=== PATIENT | female | born 1950 | race Caucasian/White ===

== ENCOUNTER 2019-01-25 23:22 | Inpatient (IN) | payer MEDICARE, OTHER ==
[~2019-01-25] VITALS: Ht 165.1 cm; Wt 78.5 kg
[~2019-01-25 23:22] MED LIST: AMLO5TAB9 PO; ASPI-1169 PO; BISA5TAB10 PO; D-ME118S12 PO; DIVA500T2 PO; DOCU-106 PO; FLUT1DIS IH; FURO20TA4 PO; INSU3INS6 SUBCUT; METF-442 PO; PANT40SU PO; PANT40TA4 PO
--- NOTE | 2019-01-25 23:30 | NUR ---
PT TO ER ED 11. AAOX3. NAD. BREATHING EVEN AND UNLABORED. C/O ACTING UNUSUAL/ALTERED, HEARING VOICES, DEPRESSION. CAREGIVER AT PLACE WHERE SHE IS STYING IS CONCERNED THAT SHE MIGHT HAVE UTI. UPON ASSEESSMENT, PT IS AGITATED AND REFUSING TREATMENT. AWAITING MD FOR EVAL.
--- NOTE | 2019-01-25 23:50 | NUR ---
PT REFUSED LAB DRAW. MADE AWARE.
--- NOTE | 2019-01-26 00:05 | NUR ---
AT BEDSIDE. PT REFUSING TREATMENT.
--- NOTE | 2019-01-26 00:23 | NUR ---
SISTER/POA BAUDILIO STEPHEN CALLED AND LEFT A MESSAGE.
--- NOTE | 2019-01-26 00:27 | NUR ---
CALLED PATIENTS PCP DR SADIA MOONEY, UNABLE TO REACH HIM PHONE NUMBER IS DICONNECTED.
[2019-01-26 00:46] LABS: BASOPHILS # (AUTO) 0.1 /CMM (0.0-0.2); BASOPHILS % (AUTO) 0.6 % (0.0-2.0); EOSINOPHILS % (AUTO) 1.7 % (0.0-6.0); HEMATOCRIT 40 % (33-45); HEMOGLOBIN 13.7 g/dL (11.5-14.8); LYMPHOCYTES # (AUTO) 4.1 /CMM (0.8-4.8); LYMPHOCYTES % (AUTO) 47.3 % (20.0-44.0); MEAN CORPUSCULAR HGB CONC 34 g/dl (31.0-36.0); MEAN CORPUSCULAR VOLUME 97 fL (82-100); MONOCYTES # (AUTO) 0.7 /CMM (0.1-1.30); MONOCYTES % (AUTO) 8.4 % (2.0-12.0); NEUTROPHILS # (AUTO) 3.6 /CMM (1.8-8.9); PLATELET COUNT (AUTO) 151 /CMM (150-450); RED BLOOD CELL COUNT(AUTO) 4.12 MIL/uL (4.0-5.2); WHITE BLOOD COUNT (AUTO) 8.7 K/uL (4.3-11.0)
[2019-01-26 01:01] LABS: CALCIUM, SERUM 9.8 mg/dL (8.5-10.1); CARBON DIOXIDE 32 mmol/L (21-32); CHLORIDE 104 mmol/L (98-107); CREATININE 0.8 mg/dL (0.6-1.3); GLUCOSE 139 mg/dL (74-106); SODIUM SERUM 140 mmol/L (136-145); UREA NITROGEN, BLOOD 17 mg/dL (7-18)
[2019-01-26 01:06] LABS: ALANINE AMINOTRANSFERASE 18 U/L (12-78); ALBUMIN 3.5 g/dL (3.4-5.0); ALKALINE PHOSPHATASE 77 U/L (46-116); ASPARTATE AMINOTRANSFERASE 11 U/L (15-37); BILIRUBIN,TOTAL 0.1 mg/dL (0.2-1.0); SALICYLATE 5.1 mg/dL (2.8-20.0); TOTAL PROTEIN, SERUM 6.7 g/dL (6.4-8.2)
[2019-01-26 01:07] LABS: ACETAMINOPHEN 0 ug/ml (10-30); ALCOHOL, BLOOD < 3 mg/dL (0-0)
[2019-01-26 01:13] LABS: THYROID STIMULATING HORMONE 2.218 uIU/mL (0.358-3.74)
--- NOTE | 2019-01-26 01:14 | NUR ---
URINE COLLECTED AND SENT TO LAB
[2019-01-26 01:21] LABS: APPEARANCE,URINE Clear (CLEAR); BILIRUBIN,URINE Negative (NEGATIVE); BLOOD, URINE Negative Ery/uL (NEGATIVE); COLOR,URINE Yellow (YELLOW); KETONES,URINE Trace (NEGATIVE); LEUKOCYTE ESTERASE ,URINE Small (NEGATIVE); NITRITE, URINE Negative (NEGATIVE); PROTEIN,URINE Negative (NEGATIVE); UGLUCOSE Negative (NEGATIVE)
[2019-01-26 01:54] LABS: BACTERIA,URINE None seen /HPF (None Seen); RBC,URINE 0-2 /HPF (0-2); SQUAMOUS EPITHELIAL CELL,UR Few /HPF (None Seen)
--- NOTE | 2019-01-26 01:55 | NUR ---
PT REFUSED TO HAVE HER VS TAKEN. REMOVING BF CUFF AND O2 SAT
--- NOTE | 2019-01-26 02:14 | NUR ---
REPORT GIVEN TO MCKAYLA ANN. PT GOING TO 220-A
--- NOTE | 2019-01-26 03:10 | NUR ---
GPS ADMISSION NOTE, [facility] . PATIENT ARRIVED ON THIS UNIT AT 0310 VIA WHEELCHAIR WITH 1 TAFFY PULLER ESCORT. PATIENT ADMITTED ON A 5150 HOLD FOR GD AND DTS. PER HOLD PATIENT IS ALERT AND ORIENTED X 1 -2, CONFUSED, RAMBLING AT TIMES, AND ANXIOUS. PATIENT IS HAVING DELUSIONAL THOUGHTS THAT HER MALE ROOMMATE WAS SETTING HER UP BY PLANTING FECES IN ROOM AND NOT ALLOWING HER TO SMOKE AT HER FACILITY. PATIENT UNABLE TO ACCOUNT FOR HER OWN ACTIVITIES DURING THE DAY. THE 5150 WAS REVIEWED AND THE DOCUMENTATION IN THE 5150 HOLD APPEARS TO REFLECT THE PRESENTATION OF THE PATIENT. UPON FACE TO FACE ASSESSMENT PATIENT IS CURRENTLY LYING IN BED AWAKE, HAS NO S/S OR COMPLAINTS OF PAIN. PATIENT IS DISPLAYING NO S/S OF APPARENT DISTRESS. PATIENT BREATHING IS UNLABORED WITH EQUAL RISE AND FALL OF THE CHEST. PATIENT IS ALERT AND ORIENTATED X 1 -2 ON ROOM AIR. PATIENT ASSISTED WITH TURING AND REPOSITIONING Q2HR AND PRN FOR COMFORT AND CIRCULATION. PATIENT HAS NO NEEDS AT THIS TIME. PATIENT IS NOTED TO BEING ANXIOUS, DISHEVELED, DISORGANIZED, CONFUSED, COOPERATIVE, AND NEEDS REDIRECTION. PATIENT DENIES SUICIDE IDEATIONS AND HOMICIDAL IDEATIONS AT THIS TIME. PATIENT IS UNDER THE PSYCHIATRIC CARE OF DR. DOYLE AND THE MEDICAL CARE OF DR QUAN. PATIENT BELONGINGS WERE INVENTORIED AND CHECKED FOR CONTRABAND. ALL CONTRABAND REMOVED AND STORED IN PATIENT HALLWAY LOCKER. PATIENT ADVANCED DIRECTIVES PREFERENCE, IMMUNIZATIONS QUESTIONER, NECESSARY PAPERWORK, AND SKIN ASSESSMENT COMPLETED. PATIENT ORIENTATED TO ROOM, FLOOR, AND STAFF WITH ALL QUESTIONS ANSWERED. PATIENT EDUCATED ON THE USE OF THE CALL [employer]. PATIENT BED SIDE RAILS ARE UP X 2 FOR SAFETY. PATIENT BED IS LOCKED, LOW AND I WILL CONTINUE TO MONITOR THIS PATIENT Q 15 MIN WITH THE HELP OF STAFF TO MAINTAIN SAFETY.
[2019-01-26] MEDS ORDERED: RISP1TAB27 PO (04:30)
[2019-01-26] MEDS ORDERED: clonazePAM 0.5 MG TABLET PO PRN (04:30)
[2019-01-26] MEDS ORDERED: MAGNESIUM HYDROXIDE 30 ML UDC PO PRN (04:30)
[2019-01-26] MEDS ORDERED: MAG HYDROX/AL HYDROX/SIMETH 30 ML UDC PO PRN (04:30)
[2019-01-26] MEDS ORDERED: ACETAMINOPHEN 325 MG TABLET PO PRN (04:30)
[2019-01-26] MEDS ORDERED: INSU100I26 SQ (04:32)
[2019-01-26] MEDS ORDERED: PALI234D IM ×2 (04:36→08:12)
[2019-01-26] MEDS ORDERED: ATOR20TA PO (04:37)
[2019-01-26] MEDS ORDERED: HYDR-4384 PO (04:40)
[2019-01-26] MEDS ORDERED: ALBU18HF2 INH (04:41)
[2019-01-26] MEDS ORDERED: DEXTROSE 50%-WATER 50 ML DISP.SYRIN IV PRN (05:30)
[2019-01-26] MEDS: BLOOD SUGAR DIAGNOSTIC 1 EACH STRIP IN SCH ×4 (07:30→21:08)
[2019-01-26 08:00] VITALS: BP 130/63
[2019-01-26] MEDS ORDERED: INSU100V11 SQ (08:12)
[2019-01-26] MEDS ORDERED: FLUT1DIS3 IH (08:12)
[2019-01-26] MEDS ORDERED: FLUT16SP16 BNOSTRILS (08:12)
[2019-01-26] MEDS ORDERED: POLY15DR40 EACHEYE (08:12)
[2019-01-26] MEDS ORDERED: POLY17PO4 PO (08:12)
[2019-01-26] MEDS ORDERED: ASPI-1152 PO (08:12)
[2019-01-26] MEDS: NICOTINE PATCH (21MG) 21 MG PATCH.TD24 TD SCH ×2 (09:00→10:47)
--- NOTE | 2019-01-26 11:25 | NUR ---
REFUSED MRSA SMEAR.
[2019-01-26] MEDS: risperiDONE 1 MG TABLET PO SCH ×3 (12:30→17:00)
--- NOTE | 2019-01-26 12:34 | NUR ---
Dr. Masters gave an order to change service to Dr. Mckeon.
--- NOTE | 2019-01-26 12:35 | NUR ---
Dr. Mckeon made aware that pt. is under his service.
[2019-01-26] MEDS: INSULIN REGULAR, HUMAN 100 UNIT/ML 3 ML VIAL SQ PRN ×3 (12:55→22:29)
[2019-01-26] MEDS: DIVALPROEX SODIUM 500 MG TABLET.DR PO SCH ×2 (13:05→18:21)
[2019-01-26] MEDS: POLYVINYL ALCOHOL 15 ML BOTTLE OP SCH ×2 (13:08→18:16)
--- NOTE | 2019-01-26 13:17 | NUR ---
dr pineda in risperdal ordered.pt. refused -states allergic.foam charger informed.dr. shama bryan's exchange called to alert him he has this new pt.left message.
[2019-01-26] MEDS ORDERED: ALBUTEROL FS 2.5 MG/3 ML VIAL.NEB NEB PRN (13:30)
--- NOTE | 2019-01-26 14:30 | NUR ---
dr. pineda in-new orders for psych.pt.spoke with
[2019-01-26 16:00] VITALS: BP 113/65
[2019-01-26] MEDS ORDERED: risperiDONE 1 MG TABLET PO SCH (17:00)
[2019-01-26] MEDS: FLUTICASONE PROPIONATE 16 GM BOTTLE NS SCH (18:16)
[2019-01-26] MEDS: METFORMIN 500 MG TABLET PO SCH (18:21)
[2019-01-26] MEDS: TEMAZEPAM 7.5 MG CAPSULE PO PRN (23:22)
[2019-01-27] MEDS: BLOOD SUGAR DIAGNOSTIC 1 EACH STRIP IN SCH ×4 (07:30→21:49)
[2019-01-27 08:00] VITALS: BP 113/56
[2019-01-27] MEDS: NICOTINE PATCH (21MG) 21 MG PATCH.TD24 TD SCH (09:14)
[2019-01-27] MEDS: risperiDONE 1 MG TABLET PO SCH ×3 (09:14→21:48)
[2019-01-27] MEDS: DIVALPROEX SODIUM 500 MG TABLET.DR PO SCH ×3 (09:14→17:00)
[2019-01-27] MEDS: POLYETHYLENE GLYCOL 3350 17 GM POWD.PACK PO SCH (09:15)
[2019-01-27] MEDS: METFORMIN 500 MG TABLET PO SCH ×2 (09:15→18:29)
[2019-01-27] MEDS: PANTOPRAZOLE 40 MG TABLET.DR PO SCH (09:15)
[2019-01-27] MEDS: ASPIRIN EC 81 MG TABLET.DR PO SCH (09:15)
[2019-01-27] MEDS: DOCUSATE SODIUM 100 MG CAPSULE PO SCH (09:15)
[2019-01-27] MEDS: INSULIN GLARGINE, 100 UNIT/ML CARTRIDGE SQ SCH (09:16)
[2019-01-27] MEDS: INSULIN REGULAR, HUMAN 100 UNIT/ML 3 ML VIAL SQ PRN ×4 (09:18→21:52)
[2019-01-27] MEDS: POLYVINYL ALCOHOL 15 ML BOTTLE OP SCH ×3 (09:22→17:00)
[2019-01-27] MEDS: FLUTICASONE/VILANTEROL 1 EACH BLST.W.DEV IH SCH (09:24)
[2019-01-27] MEDS: FLUTICASONE PROPIONATE 16 GM BOTTLE NS SCH ×2 (09:24→17:00)
[2019-01-27 16:00] VITALS: BP 100/63
[2019-01-27 19:47] VITALS: BP 129/79
[2019-01-27] MEDS: ATORVASTATIN 10 MG TABLET PO SCH ×2 (21:49→21:56)
--- NOTE | 2019-01-27 22:00 | NUR ---
GPS RN NOTES: PATIENT REFUSED HER MEDICATIONS-RISPERDAL AND LIPITOR. EXPLAINED TO PATIENT THE NEED FOR HER TO TAKE THESE MEDICAITONS. PATIENT REPLIED "DR. CARRIZALES TOLD ME NOT TO TAKE ANYTHING WITHOUT HIS PERMISSION"
[2019-01-27] MEDS: TEMAZEPAM 7.5 MG CAPSULE PO PRN (23:17)
[2019-01-28 07:14] LABS: CHOLESTEROL 132 mg/dL (<200); HDL CHOLESTEROL 39 mg/dL (40-60); LDL 80 mg/dL (0-99); TRIGLYCERIDES 143 mg/dL (30-150)
[2019-01-28 07:15] LABS: ALBUMIN 3.2 g/dL (3.4-5.0); BILIRUBIN,TOTAL 0.4 mg/dL (0.2-1.0); CALCIUM, SERUM 9.6 mg/dL (8.5-10.1); CREATININE 0.7 mg/dL (0.6-1.3); POTASSIUM 4.3 mmol/L (3.5-5.1); TOTAL PROTEIN, SERUM 6.3 g/dL (6.4-8.2)
[2019-01-28] MEDS: BLOOD SUGAR DIAGNOSTIC 1 EACH STRIP IN SCH ×4 (07:57→21:23)
[2019-01-28 08:00] VITALS: BP 155/63
[2019-01-28] MEDS: POLYVINYL ALCOHOL 15 ML BOTTLE OP SCH ×3 (08:52→17:08)
[2019-01-28] MEDS: FLUTICASONE PROPIONATE 16 GM BOTTLE NS SCH ×2 (08:53→17:08)
[2019-01-28] MEDS: DOCUSATE SODIUM 100 MG CAPSULE PO SCH (08:53)
[2019-01-28] MEDS: risperiDONE 1 MG TABLET PO SCH ×2 (08:53→21:14)
[2019-01-28] MEDS: ASPIRIN EC 81 MG TABLET.DR PO SCH (08:53)
[2019-01-28] MEDS: DIVALPROEX SODIUM 500 MG TABLET.DR PO SCH ×3 (08:53→16:52)
[2019-01-28] MEDS: PANTOPRAZOLE 40 MG TABLET.DR PO SCH (08:53)
[2019-01-28] MEDS: NICOTINE PATCH (21MG) 21 MG PATCH.TD24 TD SCH (08:54)
[2019-01-28] MEDS: FLUTICASONE/VILANTEROL 1 EACH BLST.W.DEV IH SCH (08:54)
[2019-01-28] MEDS: POLYETHYLENE GLYCOL 3350 17 GM POWD.PACK PO SCH (08:54)
[2019-01-28] MEDS: INSULIN GLARGINE, 100 UNIT/ML CARTRIDGE SQ SCH (09:12)
[2019-01-28] MEDS: INSULIN REGULAR, HUMAN 100 UNIT/ML 3 ML VIAL SQ PRN ×4 (09:13→21:23)
--- NOTE | 2019-01-28 10:23 | NUR ---
rn notes informed pharmacy of missing medications. will continue to follow up.
--- NOTE | 2019-01-28 11:53 | NUR ---
rn notes informed pharmacy of missing medications. will continue to follow up.
[2019-01-28] MEDS: METFORMIN 500 MG TABLET PO SCH ×2 (12:17→16:52)
[2019-01-28 17:20] VITALS: BP 139/74
[2019-01-28 20:16] VITALS: BP 110/57
[2019-01-28] MEDS: ATORVASTATIN 10 MG TABLET PO SCH (21:14)
[2019-01-28] MEDS: TEMAZEPAM 7.5 MG CAPSULE PO PRN (22:24)
[2019-01-29 08:00] VITALS: BP 137/68
[2019-01-29] MEDS: BLOOD SUGAR DIAGNOSTIC 1 EACH STRIP IN SCH ×4 (08:09→21:32)
[2019-01-29] MEDS: INSULIN GLARGINE, 100 UNIT/ML CARTRIDGE SQ SCH (08:13)
[2019-01-29] MEDS: POLYVINYL ALCOHOL 15 ML BOTTLE OP SCH ×3 (08:25→16:28)
[2019-01-29] MEDS: FLUTICASONE PROPIONATE 16 GM BOTTLE NS SCH ×2 (08:26→16:26)
[2019-01-29] MEDS: FLUTICASONE/VILANTEROL 1 EACH BLST.W.DEV IH SCH (08:27)
[2019-01-29] MEDS: METFORMIN 500 MG TABLET PO SCH ×2 (08:29→16:32)
[2019-01-29] MEDS: PANTOPRAZOLE 40 MG TABLET.DR PO SCH (08:30)
[2019-01-29] MEDS: DOCUSATE SODIUM 100 MG CAPSULE PO SCH (08:30)
[2019-01-29] MEDS: risperiDONE 1 MG TABLET PO SCH ×2 (08:30→21:07)
[2019-01-29] MEDS: DIVALPROEX SODIUM 500 MG TABLET.DR PO SCH ×3 (08:31→16:31)
[2019-01-29] MEDS: POLYETHYLENE GLYCOL 3350 17 GM POWD.PACK PO SCH (08:32)
[2019-01-29] MEDS: ASPIRIN EC 81 MG TABLET.DR PO SCH (08:35)
[2019-01-29] MEDS: NICOTINE PATCH (21MG) 21 MG PATCH.TD24 TD SCH (08:37)
[2019-01-29] MEDS: INSULIN REGULAR, HUMAN 100 UNIT/ML 3 ML VIAL SQ PRN ×5 (09:59→21:37)
--- NOTE | 2019-01-29 09:59 | NUR ---
RN NOTE: PATIENT HAD A BS OF 271MG/DL THIS MORNING AND REFUSED HER 6 UNITS OF REGULAR INSULIN. PATIENT WAS GETTING ANGRY, STARTED NAME CALLING AND REFUSED HER SHOT.
--- NOTE | 2019-01-29 13:11 | NUR ---
SW contacted [facility] Address: [address] [place] [address] and spoke with Feliz, test administrator who stated pt is able to return once stable.
--- NOTE | 2019-01-29 13:13 | NUR ---
SW attempted to contact pts Sister Jyoti [phone] and left a voicemail for callback.
--- NOTE | 2019-01-29 13:28 | NUR ---
RN NOTE: PATIENT'S BS PRIOR TO LUNCH WAS 229MG/DL. PATIENT REFUSED COVERAGE.
--- NOTE | 2019-01-29 13:58 | NUR ---
GPS/RN-NOTES PATIENT CAME THE NURSE STATION AND REQUESTING HER INSULIN COVERAGE. PATIENT BS WAS 229MG/DL, 4 UNITS OF R INSULIN GIVEN ORDERED.
--- NOTE | 2019-01-29 14:17 | NUR ---
INITIAL DISCHARGE PLAN: Pt will return to [facility] Address: [address] [place] [address] . MARÍA ELENA spoke with Feliz, red hat open stack administrator who stated pt is able to return once stable.MARÍA ELENA will help form a safe and proper discharge plan in collaboration with .
[2019-01-29 16:00] VITALS: BP 142/53
[2019-01-29 19:56] VITALS: BP 116/49
[2019-01-29] MEDS: ATORVASTATIN 10 MG TABLET PO SCH (21:08)
[2019-01-29] MEDS: TEMAZEPAM 7.5 MG CAPSULE PO PRN (21:53)
--- NOTE | 2019-01-29 21:53 | NUR ---
refining engineer notes' restoril po given per pt requested. blood sugar 179, 3 units of insulin alek SQ as ordered. snacks also served.
--- NOTE | 2019-01-30 | NUR ---
COMMUNITY ORGANIZATION WORKER NOTES PT SLEEPING COMFORTABLY IN BED WITHOUT ANY DISTRESS NOTED. KEPT HER WARM AND COMFORTABLE AT ALL TIMES . WILL CONTINUE MONITORING.
[2019-01-30 08:22] VITALS: BP 104/71
[2019-01-30] MEDS: PANTOPRAZOLE 40 MG TABLET.DR PO SCH (08:37)
[2019-01-30] MEDS: BLOOD SUGAR DIAGNOSTIC 1 EACH STRIP IN SCH ×4 (08:37→20:53)
[2019-01-30] MEDS: METFORMIN 500 MG TABLET PO SCH ×2 (08:59→17:14)
[2019-01-30] MEDS: risperiDONE 1 MG TABLET PO SCH ×2 (08:59→20:51)
[2019-01-30] MEDS: NICOTINE PATCH (21MG) 21 MG PATCH.TD24 TD SCH (08:59)
[2019-01-30] MEDS: DIVALPROEX SODIUM 500 MG TABLET.DR PO SCH ×3 (08:59→17:14)
[2019-01-30] MEDS: FLUTICASONE/VILANTEROL 1 EACH BLST.W.DEV IH SCH (09:00)
[2019-01-30] MEDS: ASPIRIN EC 81 MG TABLET.DR PO SCH (09:00)
[2019-01-30] MEDS: DOCUSATE SODIUM 100 MG CAPSULE PO SCH (09:00)
[2019-01-30] MEDS ORDERED: INVEGA 234 MG IM SCH (09:00)
[2019-01-30] MEDS: FLUTICASONE PROPIONATE 16 GM BOTTLE NS SCH ×2 (09:01→17:24)
[2019-01-30] MEDS: INSULIN REGULAR, HUMAN 100 UNIT/ML 3 ML VIAL SQ PRN ×3 (09:03→20:58)
[2019-01-30] MEDS: POLYETHYLENE GLYCOL 3350 17 GM POWD.PACK PO SCH (09:06)
[2019-01-30] MEDS: INSULIN GLARGINE, 100 UNIT/ML CARTRIDGE SQ SCH (09:07)
[2019-01-30] MEDS: POLYVINYL ALCOHOL 15 ML BOTTLE OP SCH ×3 (09:08→17:23)
--- NOTE | 2019-01-30 14:29 | NUR ---
GPS/RN-NOTES PATIENT REFUSED LAB DRAW TODAY DESPITE ENCOURAGEMENT AND SEVERAL ATTEMPT. PATIENT GETS ANGRY AT SENIOR HR GENERALIST AND THE LAB STAFF.
--- NOTE | 2019-01-30 15:52 | NUR ---
GROUP NOTE: Pt not appropriate on this present day to participate in group therapy as pt is paranoid and has delusional thinking and is responding to internal stimuli. Pt is withdrawn and isolated.
[2019-01-30 16:00] VITALS: BP 119/64
[2019-01-30 19:34] VITALS: BP 156/67
[2019-01-30] MEDS: ATORVASTATIN 10 MG TABLET PO SCH (20:51)
[2019-01-30] MEDS: TEMAZEPAM 7.5 MG CAPSULE PO PRN (22:49)
[2019-01-31] MEDS: HYDROCODONE/APAP 5/325MG 1 EACH TABLET PO PRN ×3 (01:38→18:38)
[2019-01-31 07:39] LABS: VALPROIC ACID 64 ug/mL (50-100)
[2019-01-31 08:00] VITALS: BP 101/59
[2019-01-31 08:03] LABS: ALANINE AMINOTRANSFERASE 10 U/L (12-78); ASPARTATE AMINOTRANSFERASE 7 U/L (15-37)
[2019-01-31] MEDS: PANTOPRAZOLE 40 MG TABLET.DR PO SCH (08:07)
[2019-01-31] MEDS: ASPIRIN EC 81 MG TABLET.DR PO SCH (08:07)
[2019-01-31] MEDS: DOCUSATE SODIUM 100 MG CAPSULE PO SCH (08:07)
[2019-01-31] MEDS: BLOOD SUGAR DIAGNOSTIC 1 EACH STRIP IN SCH ×4 (08:07→21:51)
[2019-01-31] MEDS: METFORMIN 500 MG TABLET PO SCH ×2 (08:07→17:06)
[2019-01-31] MEDS: risperiDONE 1 MG TABLET PO SCH ×2 (08:07→21:33)
[2019-01-31] MEDS: DIVALPROEX SODIUM 500 MG TABLET.DR PO SCH ×2 (08:07→12:04)
[2019-01-31] MEDS: NICOTINE PATCH (21MG) 21 MG PATCH.TD24 TD SCH (08:08)
[2019-01-31] MEDS: POLYETHYLENE GLYCOL 3350 17 GM POWD.PACK PO SCH (08:08)
[2019-01-31] MEDS: FLUTICASONE/VILANTEROL 1 EACH BLST.W.DEV IH SCH (08:10)
[2019-01-31] MEDS: FLUTICASONE PROPIONATE 16 GM BOTTLE NS SCH ×2 (08:10→17:42)
[2019-01-31] MEDS: POLYVINYL ALCOHOL 15 ML BOTTLE OP SCH ×3 (08:10→17:00)
[2019-01-31] MEDS: INSULIN GLARGINE, 100 UNIT/ML CARTRIDGE SQ SCH (08:14)
[2019-01-31] MEDS: INSULIN REGULAR, HUMAN 100 UNIT/ML 3 ML VIAL SQ PRN ×2 (11:58→17:43)
--- NOTE | 2019-01-31 13:30 | NUR ---
RN-CO: ELAINE RING MADE AWARE THE PT IS FOR DISCHARGE TOMM. 02/01, PER DR BIGGS.
--- NOTE | 2019-01-31 14:20 | NUR ---
MARÍA ELENA contacted Blanche, coordinator at [facility] Address: [address] [place] [address] Phone: [phone] to inform the facility that pt will be discharged on Monday02/01/19 at 12:00pm Blanche agreed with discharge.
[2019-01-31 16:00] VITALS: BP 144/74
[2019-01-31 20:00] VITALS: BP 125/66
[2019-01-31] MEDS ORDERED: DIVALPROEX SODIUM 125 MG TABLET.DR PO SCH (21:00)
[2019-01-31] MEDS: TEMAZEPAM 7.5 MG CAPSULE PO PRN (21:34)
[2019-01-31] MEDS: ATORVASTATIN 10 MG TABLET PO SCH (21:34)
[2019-02-01] MEDS: HYDROCODONE/APAP 5/325MG 1 EACH TABLET PO PRN (02:15)
[2019-02-01] MEDS ORDERED: ZOLP10TA6 PO (05:48)
[2019-02-01] MEDS ORDERED: ATOR20TA PO (05:48)
[2019-02-01] MEDS ORDERED: ONDA4TAB10 PO (05:48)
[2019-02-01] MEDS ORDERED: FOLI1TAB16 PO (05:48)
[2019-02-01] MEDS ORDERED: ASPI-1152 PO (05:48)
[2019-02-01] MEDS: BLOOD SUGAR DIAGNOSTIC 1 EACH STRIP IN SCH (07:37)
[2019-02-01 08:00] VITALS: BP 119/68
[2019-02-01] MEDS: METFORMIN 500 MG TABLET PO SCH (08:17)
[2019-02-01] MEDS: PANTOPRAZOLE 40 MG TABLET.DR PO SCH (08:17)
[2019-02-01] MEDS: risperiDONE 1 MG TABLET PO SCH (08:17)
[2019-02-01] MEDS: NICOTINE PATCH (21MG) 21 MG PATCH.TD24 TD SCH (08:17)
[2019-02-01] MEDS: POLYETHYLENE GLYCOL 3350 17 GM POWD.PACK PO SCH (08:17)
[2019-02-01] MEDS: DOCUSATE SODIUM 100 MG CAPSULE PO SCH (08:17)
[2019-02-01] MEDS: ASPIRIN EC 81 MG TABLET.DR PO SCH (08:17)
[2019-02-01] MEDS: POLYVINYL ALCOHOL 15 ML BOTTLE OP SCH (08:18)
[2019-02-01] MEDS: FLUTICASONE PROPIONATE 16 GM BOTTLE NS SCH (08:18)
[2019-02-01] MEDS: FLUTICASONE/VILANTEROL 1 EACH BLST.W.DEV IH SCH (08:19)
[2019-02-01] MEDS: INSULIN GLARGINE, 100 UNIT/ML CARTRIDGE SQ SCH (08:19)
[2019-02-01] MEDS ORDERED: DIVALPROEX SODIUM 500 MG TABLET.DR PO SCH (09:00)
--- NOTE | 2019-02-01 09:40 | NUR ---
DR. BIGGS GAVE AN ORDER TO D/C HOLD AND D/C TO [facility] AND TO FOLLOW UP WITH PSYCH AND MEDICAL DOCTORS AND HE RECONCILED THE MEDS TO CONTINUE.
--- NOTE | 2019-02-01 11:45 | NUR ---
GPS/RN PT DISCHARGED TO [facility] VIA TAXI WITH VOUCHER PROVIDED. NO SI OR HI AT THE TIME OF DISCHARGE REFUSED TO SIGN D/C PAPERWORK. MEDS LIST PROVIDED FROM DR BIGGS AND DR RUSSELL. PROPERTY RETURNED. NO PICTURES TAKEN PT REFUSED TO LET RN TO DO IT. ID BAND REMOVED. VSS.
--- NOTE | 2019-02-01 11:48 | NUR ---
DISCHARGE NOTE: Pt was discharged at 11:30am via [employer] [facility] voucher to [facility] Address: [address] [place] [address] . No family to contact. Pts mood was euthymic with congruent affect. Pt denied suicidal/homicidal ideation and denied visual/auditory hallucinations. Pt will be under the care of Psychiatrist: Dr. Poli Mckeon Address: [address] [place] [address] and Blending Tank Helper: Dr. Naida Barakat Address: [address], [place] [address] . The multidisciplinary exitcare form was done, printed, signed, and given to the patient.
== END 2019-02-01 11:45 | DRG 885 ==
LOC: ER 23:24 → GPS 01-26 02:42
PROVIDERS: ADMIT Psychiatry & Neurology Psychiatry; ATTEND Family Medicine
DX: F25.9 Schizoaffective disorder, unspecified (principal); E11.65 Type 2 diabetes mellitus with hyperglycemia; N39.0 Urinary tract infection, site not specified; G40.909 Epilepsy, unspecified, not intractable, without status epilepticus; I10 Essential (primary) hypertension; J44.9 Chronic obstructive pulmonary disease, unspecified; K21.9 Gastro-esophageal reflux disease without esophagitis; F32.9 Major depressive disorder, single episode, unspecified; F17.210 Nicotine dependence, cigarettes, uncomplicated; G31.84 Mild cognitive impairment of uncertain or unknown etiology; E78.5 Hyperlipidemia, unspecified
CPT/HCPCS: 36415; 80048-TC; 80053-TC; 80061-TC; 80076-TC; 80164-TC; 80305; 81000-TC; 82962-TC; 84443-TC; 84450-TC; 84460-TC; 85025-TC; 87081-TC; 87086-TC; G0480; J1815